=== PATIENT | female | born 1970 | race Hispanic/Latino ===

== ENCOUNTER 2018-03-19 23:03 | Emergency (ER) | payer OTHER ==
[~2018-03-19] VITALS: Ht 165.1 cm; Wt 77.1 kg
[2018-03-19] MEDS ORDERED: ONDANSETRON HCL INJ 2 MG/ML VIAL IV STA (23:21)
[2018-03-19] MEDS ORDERED: ACETAMINOPHEN 325 MG TAB PO ONE (23:30)
[2018-03-19] MEDS ORDERED: SODIUM CHLORIDE 0.9% 1000ML 1,000 ML IV ONE (23:30)
[2018-03-20] MEDS ORDERED: CEFTRIAXONE SOD 1 GM VIAL IV ONE (00:15)
--- NOTE | 2018-03-20 00:45 | NUR ---
Pt ambulates to RR, steady gait, no distress is noted.
--- NOTE | 2018-03-20 01:20 | Diagnostic Imaging Report ---
EXAM: CT ABDOMEN AND PELVIS without IV CONTRAST INDICATION: Left-sided abdominal pain COMPARISON: None TECHNIQUE: The abdomen and pelvis were scanned using a multidetector helical scanner. Coronal and sagittal reformations were obtained. Dose modulation, iterative reconstruction, and/or weight based adjustment of the mA/kV was utilized to reduce the radiation dose to as low as reasonably achievable. Renal stone protocol performed. IV Contrast: None Oral Contrast: None CTDIvol has been reviewed. It is below the limits set by the Radiation Protocol Committee (RPC). FINDINGS: LOWER THORAX: No consolidations LIVER: Hepatomegaly and hepatic stage cirrhosis. BILIARY: Normal gallbladder. No ductal dilation. SPLEEN: No masses PANCREAS: No masses ADRENALS: No nodules RIGHT KIDNEY: There is a 5 x 4 x 3 mm stone in the distal right ureter, approximately 2 cm proximal to the ureterovesicular junction, resulting in severe hydroureteronephrosis and perinephric fat stranding. LEFT KIDNEY: There are 2 punctate nonobstructing stones in the inferior pole. GI TRACT: No wall thickening or obstruction. VESSELS: Normal PERITONEUM/RETROPERITONEUM: No free air or fluid LYMPH NODES: No lymphadenopathy REPRODUCTIVE ORGANS: Normal BLADDER: Normal SOFT TISSUES: Normal BONES: No suspicious bone lesions. IMPRESSION: There is a 5 x 4 x 3 mm stone in the distal right ureter, approximately 2 cm proximal to the ureterovesicular junction, resulting in severe hydroureteronephrosis and perinephric fat stranding. Signed by: Dr. Abbi Santos M.D. on 03/20/2018 1:17 AM
--- NOTE | 2018-03-20 01:30 | NUR ---
Pt ambulating to RR, steady gait, no distress is noted.
[2018-03-20] MEDS ORDERED: KETOROLAC TROMETHAMINE 30 MG/ML VIAL IV STA (01:45)
--- NOTE | 2018-03-20 02:02 | NUR ---
Pt advised of need to transfer to [facility]. Pt states desire to sign out AMA, because they do not want a "$1000 ambulance bill". The pt is in no distress, pain meds and antibiotics given. ERP at bedside to speak with pt about risk of leaving AMA.
[2018-03-20] MEDS ORDERED: MORPHINE SULFATE 2 MG/ML SYR IV STA (03:18)
[2018-03-20] MEDS ORDERED: ONDANSETRON HCL INJ 2 MG/ML VIAL IV STA (03:18)
[2018-03-20] MEDS ORDERED: ACETAMINOPHEN 325 MG TAB PO ONE (03:30)
[2018-03-20 03:49] VITALS: BP 139/61
== END 2018-03-20 03:51 | disposition other institution (70) ==
LOC: FSED 23:03
DX: R10.30 Lower abdominal pain, unspecified (principal); M54.5 Low back pain; R11.0 Nausea; N20.1 Calculus of ureter; N30.91 Cystitis, unspecified with hematuria; N10 Acute pyelonephritis
CPT/HCPCS: 74176; 80053; 81003; 85025; 87040; 87086; 87186; 99284; J7030

== ENCOUNTER 2019-07-12 10:40 | Emergency (ER) | payer OTHER ==
[~2019-07-12] VITALS: Ht 167.6 cm; Wt 72.6 kg
--- OUTSIDE RECORDS SUMMARY | 2019-07-12 10:44 | XMS REPORT ---
[facility] Address Unknown Phone Unavailable Care Team Providers Care Casino Change Attendant Name Role Phone NONSTAFF PP Unavailable Phoenix BEARDEN Unavailable Unavailable JUWAN PRESTON Unavailable Unavailable Leana LARA Unavailable Unavailable Payers Payer Name Policy Type Policy Number Effective Date Expiration Date [facility] [id number] 2016 00:00:00 Problems This patient has no known problems. Allergies, Adverse Reactions, Alerts This patient has no known allergies or adverse reactions. Medications This patient has no known medications. Encounters Start Date/Time End Date/Time Encounter Type Admission Type Attending Clinicians Care Facility Care Department Encounter ID 2018-03-19 23:03:00 2018-03-20 03:51:00 Departed Emergency Room 1 MI LARA [facility] [id number] Results Test Description Test Time Test Comments Text Results Atomic Results Result Comments BLOOD CULTURE 2019-05-05 11:15:00 CULTURE (BEAKER) (test tbaj=3806) From Aerobic Bottle Only Micrococcus luteus GRAM STAIN RESULT (BEAKER) (test fgug=6820) From aerobic bottle only: gram positive cocci in clusters BLOOD [id number] 13:28:00* Test Item Value Reference Range Comments CULTURE (BEAKER) (test ozfp=8862) From Anaerobic Bottle Only Coagulase negative Staphylococcus GRAM STAIN RESULT (BEAKER) (test femj=4331) From anaerobic bottle only: gram positive cocci in clusters POCT-GLUCOSE [id number] 12:17:00* Test Item Value Reference Range Comments POC-GLUCOSE METER (BEAKER) (test mgmf=4165) 196 mg/dL 70-110 : TESTED AT [facility] [address] [facility], [address]: Head Gauge Unit Operator/Drying Machine Back Tender [id number] for STARLA LYNN URINE [id number] 08:46:00* Test Item Value Reference Range Comments CULTURE (BEAKER) (test jsap=2909) ESCHERICHIA COLI >100,000 col/mL Escherichia coli Amikacin (test code=1) Ampicillin + Sulbactam (test code=6) Aztreonam (test code=32) Cefepime (test code=51) Cefoxitin (test code=68) Ceftazidime (test code=27) Ceftriaxone (test code=52) Ertapenem (test code=38) Gentamicin (test code=18) Levofloxacin (test code=22) Meropenem (test code=34) Nitrofurantoin (test code=23) Tetracycline (test code=2) Tobramycin (test code=25) Trimethoprim + Sulfamethoxazole (test code=47) POCT-GLUCOSE [id number] 08:39:00* Test Item Value Reference Range Comments POC-GLUCOSE METER (BEAKER) (test ykxa=3225) 139 mg/dL 70-110 : TESTED AT [facility] [address] [facility], [address]: Head Gauge Unit Operator/Drying Machine Back Tender MQ=[id number] for STARLA LYNN BASIC METABOLIC [id number] 07:25:00* Test Item Value Reference Range Comments SODIUM (BEAKER) (test qavf=035) 138 meq/L 136-145 POTASSIUM (BEAKER) (test wzre=111) 3.5 meq/L 3.5-5.1 CHLORIDE (BEAKER) (test femv=166) 110 meq/L 98-107 CO2 (BEAKER) (test gzie=374) 23 meq/L 22-29 BLOOD UREA NITROGEN (BEAKER) (test fckw=003) 9 mg/dL 7-21 CREATININE (BEAKER) (test syvc=831) 0.71 mg/dL 0.57-1.25 GLUCOSE RANDOM (BEAKER) (test hkdd=816) 147 mg/dL 70-105 CALCIUM (BEAKER) (test mged=955) 8.2 mg/dL 8.4-10.2 EGFR (BEAKER) (test tcec=6686) 87 mL/min/1.73 sq m ESTIMATED GFR IS NOT ACCURATE CREATININE CLEARANCE IN PREDICTING GLOMERULAR FILTRATION RATE. ESTIMATED GFR IS NOT APPLICABLE FOR DIALYSIS PATIENTS. Head Gauge Unit Operator ID - CONY LCBC W/PLT COUNT & AUTO [id number] 06:51:00* Test Item Value Reference Range Comments WHITE BLOOD CELL COUNT (BEAKER) (test xlwy=094) 8.7 K/ L 3.5-10.5 RED BLOOD CELL COUNT (BEAKER) (test amne=013) 4.03 M/ L 3.93-5.22 HEMOGLOBIN (BEAKER) (test xrnh=146) 11.5 GM/DL 11.2-15.7 HEMATOCRIT (BEAKER) (test xlzh=652) 36.6 % 34.1-44.9 MEAN CORPUSCULAR VOLUME (BEAKER) (test ftdq=890) 90.8 fL 79.4-94.8 MEAN CORPUSCULAR HEMOGLOBIN (BEAKER) (test ihvn=283) 28.5 pg 25.6-32.2 MEAN CORPUSCULAR HEMOGLOBIN CONC (BEAKER) (test mizd=883) 31.4 GM/DL 32.2-35.5 RED CELL DISTRIBUTION WIDTH (BEAKER) (test gcuw=543) 12.9 % 11.7-14.4 PLATELET COUNT (BEAKER) (test afqq=482) 179 K/CU MM 150-450 MEAN PLATELET VOLUME (BEAKER) (test hvdm=749) 10.7 fL 9.4-12.3 NUCLEATED RED BLOOD CELLS (BEAKER) (test jzts=233) 0 /100 WBC 0-0 NEUTROPHILS RELATIVE PERCENT (BEAKER) (test yebv=773) 69 % LYMPHOCYTES RELATIVE PERCENT (BEAKER) (test riwv=737) 17 % MONOCYTES RELATIVE PERCENT (BEAKER) (test udwt=238) 13 % EOSINOPHILS RELATIVE PERCENT (BEAKER) (test sekn=608) 0 % BASOPHILS RELATIVE PERCENT (BEAKER) (test tcxl=992) 1 % NEUTROPHILS ABSOLUTE COUNT (BEAKER) (test zjyv=043) 5.99 K/ L 1.56-6.13 LYMPHOCYTES ABSOLUTE COUNT (BEAKER) (test lprq=076) 1.48 K/ L 1.18-3.74 MONOCYTES ABSOLUTE COUNT (BEAKER) (test brgz=631) 1.17 K/ L 0.24-0.36 EOSINOPHILS ABSOLUTE COUNT (BEAKER) (test lnrj=657) 0.00 K/ L 0.04-0.36 BASOPHILS ABSOLUTE COUNT (BEAKER) (test yjnw=947) 0.04 K/ L 0.01-0.08 IMMATURE GRANULOCYTES-RELATIVE PERCENT (BEAKER) (test qimw=6758) 1 % 0-1 BLOOD CULTURE IDENTIFICATION [id number] 01:13:00* Test Item Value Reference Range Comments LISTERIA MONOCYTOGENES (test etud=5800586) Not detected Not detected STAPHYLOCOCCUS (test ufea=9140079) Detected Not detected Coagulase negative Staph species (CoNS)- methicillin susceptibleFirst-line therapy: Cefazolin or Oxacillin (Oxacillin preferred if COMPLAINT EVALUATION SUPERVISOR involvement) MecA NOT DETECTEDPossible contamination. The likelihood of pathogenicity is increased if the organism is observed in multiple blood cultures obtained from separate venipunctures.Reference Range: Not Detected STAPHYLOCOCCUS AUREUS (test jugl=6323189) Not detected Not detected STREPTOCOCCUS (test mfty=2093024) Not detected Not detected STREPTOCOCCUS AGALACTIAE (GROUP B) (test elpi=8505149) Not detected Not detected STREPTOCOCCUS PNEUMONIAE (test ddkg=5295932) Not detected Not detected STREPTOCOCCUS PYOGENES (GROUP A) (test atca=8735860) Not detected Not detected ACINETOBACTER BAUMANNII (test gero=9136154) Not detected Not detected HAEMOPHILUS INFLUENZAE (test jkpm=1237109) Not detected Not detected NEISSERIA MENINGITIDIS (test trbe=4808104) Not detected Not detected ENTEROBACTERIACEAE (test ormh=0693781) Not detected Not detected ENTEROBACTER CLOACOE COMPLEX (test kcjs=5200101) Not detected Not detected KLEBSIELLA OXYTOCA (test iaym=8107402) Not detected Not detected KLEBSIELLA PNEUMONIAE (test ytly=8414) Not detected Not detected PROTEUS (test cmov=0952565) Not detected Not detected SERRATIA MARCESCENS (test cxdg=8243524) Not detected Not detected CELINE ALBICANS (test vlum=0743186) Not detected Not detected CELINE GLABRATA (test ghml=8851219) Not detected Not detected CELINE KRUSEI (test ddoa=9787303) Not detected Not detected CELINE PARAPSILOSIS (test aojy=6222157) Not detected Not detected CELINE TROPICALIS (test xiqr=4607862) Not detected Not detected ESCHERICHIA COLI (test oycf=9012857) Not detected Not detected METHICILLIN-RESISTANCE GENE (test efbc=8728096) Not detected Not detected VANCOMYCIN-RESISTANCE GENE (test imne=6930663) CARBAPENEM-RESISTANCE GENE (test bmbt=4812892) ENTEROCOCCUS-BEAKER (test zktm=1160063) Not detected Not detected PSEUDOMONAS AERUGINOSA-BEAKER (test szoe=7760936) Not detected Not detected Other bacteria and resistance markers not targeted by this PCR panel cannot be e xcluded; therefore clinical correlation and follow up of serology, culture resul ts, and other molecular studies is required. The results are not intended to be used as the sole means for clinical diagnosis or patient management decisions. T his sample was tested at the [facility] using the You.i Blood Culture ID Panel. It is FDA cleared and has been verified and approved by the [facility] for clinical use. Thi s laboratory is CLIA-certified and [employer] ([employer])-accred ited to perform high complexity testing.POCT-GLUCOSE [id number] 21:04:00* Test Item Value Reference Range Comments POC-GLUCOSE METER (BEAKER) (test rsjr=8924) 174 mg/dL 70-110 : TESTED AT [address], [address]: Head Gauge Unit Operator/Drying Machine Back Tender JP=[id number] for JEY STUART POCT-GLUCOSE [id number] 17:30:00* Test Item Value Reference Range Comments POC-GLUCOSE METER (BEAKER) (test hext=1722) 182 mg/dL 70-110 : TESTED AT [address], [address]: Head Gauge Unit Operator/Drying Machine Back Tender XG=[id number] for CHELSIE BANGURA POCT-GLUCOSE [id number] 11:55:00* Test Item Value Reference Range Comments POC-GLUCOSE METER (BEAKER) (test fisl=9387) 145 mg/dL 70-110 : TESTED AT [address], [address]: Head Gauge Unit Operator/Drying Machine Back Tender KF=[id number] for CHELSIE BANGURA POCT-GLUCOSE [id number] 07:52:00* Test Item Value Reference Range Comments POC-GLUCOSE METER (BEAKER) (test vaqz=7655) 144 mg/dL 70-110 : TESTED AT [address], [address]: Head Gauge Unit Operator/Drying Machine Back Tender TL=[id number] for CHELSIE BANGURA CBC W/PLT COUNT & AUTO [id number] 03:36:00* Test Item Value Reference Range Comments WHITE BLOOD CELL COUNT (BEAKER) (test kizk=076) 13.7 K/ L 3.5-10.5 RED BLOOD CELL COUNT (BEAKER) (test ypcz=941) 4.54 M/ L 3.93-5.22 HEMOGLOBIN (BEAKER) (test fikg=046) 13.1 GM/DL 11.2-15.7 HEMATOCRIT (BEAKER) (test mzxo=646) 40.9 % 34.1-44.9 MEAN CORPUSCULAR VOLUME (BEAKER) (test zizo=401) 90.1 fL 79.4-94.8 MEAN CORPUSCULAR HEMOGLOBIN (BEAKER) (test yqaz=248) 28.9 pg 25.6-32.2 MEAN CORPUSCULAR HEMOGLOBIN CONC (BEAKER) (test nwef=248) 32.0 GM/DL 32.2-35.5 RED CELL DISTRIBUTION WIDTH (BEAKER) (test ymqx=184) 13.0 % 11.7-14.4 PLATELET COUNT (BEAKER) (test vqxd=960) 195 K/CU MM 150-450 MEAN PLATELET VOLUME (BEAKER) (test szaf=745) 10.4 fL 9.4-12.3 NUCLEATED RED BLOOD CELLS (BEAKER) (test tqpm=245) 0 /100 WBC 0-0 NEUTROPHILS RELATIVE PERCENT (BEAKER) (test zbvf=756) 80 % LYMPHOCYTES RELATIVE PERCENT (BEAKER) (test obsg=263) 11 % MONOCYTES RELATIVE PERCENT (BEAKER) (test vlne=337) 8 % EOSINOPHILS RELATIVE PERCENT (BEAKER) (test clpp=007) 0 % BASOPHILS RELATIVE PERCENT (BEAKER) (test bduw=278) 0 % NEUTROPHILS ABSOLUTE COUNT (BEAKER) (test bpmm=133) 10.92 K/ L 1.56-6.13 LYMPHOCYTES ABSOLUTE COUNT (BEAKER) (test rlry=142) 1.52 K/ L 1.18-3.74 MONOCYTES ABSOLUTE COUNT (BEAKER) (test jecb=319) 1.08 K/ L 0.24-0.36 EOSINOPHILS ABSOLUTE COUNT (BEAKER) (test czng=498) 0.00 K/ L 0.04-0.36 BASOPHILS ABSOLUTE COUNT (BEAKER) (test vuhz=238) 0.04 K/ L 0.01-0.08 IMMATURE GRANULOCYTES-RELATIVE PERCENT (BEAKER) (test nqhd=9871) 1 % 0-1 BASIC METABOLIC [id number] 03:31:00* Test Item Value Reference Range Comments SODIUM (BEAKER) (test syqc=047) 137 meq/L 136-145 POTASSIUM (BEAKER) (test qwek=608) 4.1 meq/L 3.5-5.1 Specimen slightly hemolyzed CHLORIDE (BEAKER) (test gynb=510) 109 meq/L 98-107 CO2 (BEAKER) (test pcme=544) 22 meq/L 22-29 BLOOD UREA NITROGEN (BEAKER) (test suni=168) 11 mg/dL 7-21 CREATININE (BEAKER) (test kjav=391) 0.81 mg/dL 0.57-1.25 Specimen slightly hemolyzed GLUCOSE RANDOM (BEAKER) (test masx=518) 154 mg/dL 70-105 CALCIUM (BEAKER) (test yvbb=373) 8.5 mg/dL 8.4-10.2 EGFR (BEAKER) (test xutn=6402) 75 mL/min/1.73 sq m ESTIMATED GFR IS NOT ACCURATE CREATININE CLEARANCE IN PREDICTING GLOMERULAR FILTRATION RATE. ESTIMATED GFR IS NOT APPLICABLE FOR DIALYSIS PATIENTS. Head Gauge Unit Operator ID - ROLANDO MPOCT-GLUCOSE [id number] 22:14:00* Test Item Value Reference Range Comments POC-GLUCOSE METER (BEAKER) (test tgpk=8019) 168 mg/dL 70-110 : TESTED AT [facility] [address] [facility], [address]: Head Gauge Unit Operator/Drying Machine Back Tender UI=[id number] for MUNGUIA, SARA POCT-GLUCOSE [id number] 18:25:00* Test Item Value Reference Range Comments POC-GLUCOSE METER (BEAKER) (test uumc=7355) 127 mg/dL 70-110 : TESTED AT [facility] [address] [facility], [address]: Head Gauge Unit Operator/Drying Machine Back Tender TF=[id number] for LUTZ, SHIVA LACTIC ACID, [id number] 11:34:00* Test Item Value Reference Range Comments LACTATE BLOOD VENOUS (2) (BEAKER) (test jeiz=7648) 1.3 mmol/L 0.5-2.2 CT, [id number] 10:20:00Please specify:->TUBAL LIGATIONFINAL REPORT CT scan of the abdomen and pelvis. MEDICAL HISTORY: Left flank pain. COMPARISON STUDY: None available. TECHNIQUE: Contiguous helical slices were acquired through the abdomen and pelvis without the administration of contrast. This exam was performed according to our department dose op timization program which includes automated exposure control, adjustment of the mA and/or kV according to the patient's size and/or use of iterative reconstruct ion technique. FINDINGS: The lung bases are clear. The abdomen and pelvis are li mited by lack of contrast. The liver is fatty in attenuation with no focal moe s. The spleen, pancreas and adrenal glands are unremarkable. The gallbladder and biliary tree are within normal limits. There is a 2 mm nonocclusive calculus in the interpolar portion of the right kidney. An 8 mm low-attenuation lesion is a lso seen in the interpolar portion of the left kidney. Approximately five puncta te nonocclusive left renal calculi are seen measuring up to 2 mm. No significant hydronephrosis is noted. There is no ureteric calculus seen. Left-sided perinep hric and periureteric stranding is noted. No free fluid or free air is seen. The re is no suspicious adenopathy. There are no dilated loops of bowel seen suggest obstruction. A normal appendix is seen. The aorta is normal in caliber. Bone wi ndows demonstrate degenerative changes. IMPRESSION:1. Fatty liver.2. Study limit ed by lack of contrast.3. Left-sided perinephric stranding and periureteric stra nding. No definite calculus is seen at the present time. Potential etiologies in clude a recently passed calculus or infection/inflammation.4. Bilateral tiny non occlusive renal calculi and low-attenuation lesion in the left kidney. Signed: López Lucas MDReport Verified Date/Time: 04/29/2019 10:20:49 Reading Locatio n: [facility] Diagnostic Imaging Reading Room - [facility] F1 1129 Electronically sign ed by: LÓPEZ KHAN M.D. on 04/29/2019 10:20 AM BASIC METABOLIC PANEL 2019-04-29 09:57:00* Test Item Value Reference Range Comments SODIUM (BEAKER) (test talw=555) 135 meq/L 135-148 POTASSIUM (BEAKER) (test kppp=937) 4.3 meq/L 3.6-5.5 CHLORIDE (BEAKER) (test anna=456) 101 meq/L 98-106 CO2 (BEAKER) (test pinx=056) 24 meq/L 24-32 BLOOD UREA NITROGEN (BEAKER) (test sukb=124) 17 mg/dL 10-26 CREATININE (BEAKER) (test wsrb=141) 0.94 mg/dL 0.50-1.20 GLUCOSE RANDOM (BEAKER) (test ppoy=451) 200 mg/dL 70-110 CALCIUM (BEAKER) (test yuuf=494) 8.8 mg/dL 8.5-10.5 EGFR (BEAKER) (test areu=0771) 63 mL/min/1.73 sq m ESTIMATED GFR IS NOT ACCURATE CREATININE CLEARANCE IN PREDICTING GLOMERULAR FILTRATION RATE. ESTIMATED GFR IS NOT APPLICABLE FOR DIALYSIS PATIENTS. CBC W/PLT COUNT & AUTO [id number] 09:49:00* Test Item Value Reference Range Comments WHITE BLOOD CELL COUNT (BEAKER) (test hhwx=785) 20.2 K/ L 4.0-10.0 RED BLOOD CELL COUNT (BEAKER) (test mhxf=620) 5.32 M/ L 4.00-5.00 HEMOGLOBIN (BEAKER) (test zajo=029) 15.7 GM/DL 12.0-15.0 HEMATOCRIT (BEAKER) (test xdox=182) 47.3 % 36.0-45.0 MEAN CORPUSCULAR VOLUME (BEAKER) (test mjxw=072) 88.9 fL 82.0-99.0 MEAN CORPUSCULAR HEMOGLOBIN (BEAKER) (test rmbx=592) 29.5 pg 27.0-33.0 MEAN CORPUSCULAR HEMOGLOBIN CONC (BEAKER) (test ujwr=544) 33.2 GM/DL 32.0-36.0 RED CELL DISTRIBUTION WIDTH (BEAKER) (test xueu=544) 12.1 % 10.3-14.2 PLATELET COUNT (BEAKER) (test zrfb=302) 244 K/CU MM 150-430 MEAN PLATELET VOLUME (BEAKER) (test voli=649) 8.5 fL 6.5-10.5 NEUTROPHILS RELATIVE PERCENT (BEAKER) (test fwje=435) 84 % LYMPHOCYTES RELATIVE PERCENT (BEAKER) (test wnaj=923) 7 % MONOCYTES RELATIVE PERCENT (BEAKER) (test vrnk=247) 7 % EOSINOPHILS RELATIVE PERCENT (BEAKER) (test hqnv=065) 1 % BASOPHILS RELATIVE PERCENT (BEAKER) (test tszt=791) 1 % NEUTROPHILS ABSOLUTE COUNT (BEAKER) (test ygiq=113) 17.01 K/ L 1.80-8.00 LYMPHOCYTES ABSOLUTE COUNT (BEAKER) (test llax=883) 1.33 K/ L 1.48-4.50 MONOCYTES ABSOLUTE COUNT (BEAKER) (test iguy=184) 1.40 K/ L 0.00-1.30 EOSINOPHILS ABSOLUTE COUNT (BEAKER) (test difu=611) 0.22 K/ L 0.00-0.50 BASOPHILS ABSOLUTE COUNT (BEAKER) (test rhtl=048) 0.26 K/ L 0.00-0.20 URINALYSIS W/ [id number] 09:46:00* Test Item Value Reference Range Comments COLOR (BEAKER) (test ltnx=052) Yellow CLARITY (BEAKER) (test usud=689) Turbid SPECIFIC GRAVITY UA (BEAKER) (test ptmv=290) 1.025 1.001-1.035 PH UA (BEAKER) (test ypqb=732) 6.0 5.0-8.0 PROTEIN UA (BEAKER) (test agms=282) >=300 mg/dL Negative GLUCOSE UA (BEAKER) (test slbs=931) Negative Negative KETONES UA (BEAKER) (test rrga=624) 15 mg/dL Negative BILIRUBIN UA (BEAKER) (test usme=231) Negative Negative BLOOD UA (BEAKER) (test hocl=442) Moderate Negative NITRITE UA (BEAKER) (test ysmu=644) Positive Negative LEUKOCYTE ESTERASE UA (BEAKER) (test ewoq=166) Large Negative UROBILINOGEN UA (BEAKER) (test elxs=169) 0.2 mg/dL 0.2-1.0 BACTERIA (BEAKER) (test wlhb=764) Moderate RBC UA-MANUAL (BEAKER) (test qxvt=7340) <5 /HPF WBC UA-MANUAL (BEAKER) (test bnum=6677) >100 /HPF SQUAMOUS EPITHELIAL MANUAL (BEAKER) (test lvds=2721) 10-20 /HPF Clue cells seen, moderate. SOURCE(BEAKER) (test zsjz=1712) BLOOD [id number] 19:01:00* Test Item Value Reference Range Comments CULTURE (BEAKER) (test vrbd=7575) No growth in 5 days BLOOD [id number] 19:01:00* Test Item Value Reference Range Comments CULTURE (BEAKER) (test bvcs=9357) No growth in 5 days POCT-GLUCOSE [id number] 08:12:00* Test Item Value Reference Range Comments POC-GLUCOSE METER (BEAKER) (test hodg=9471) 183 mg/dL 70-110 TESTED AT [facility] [address] [facility] [address] BASIC METABOLIC [id number] 05:27:00* Test Item Value Reference Range Comments SODIUM (BEAKER) (test vbro=211) 139 meq/L 136-145 POTASSIUM (BEAKER) (test miqb=747) 3.7 meq/L 3.5-5.1 CHLORIDE (BEAKER) (test bzdm=905) 106 meq/L 98-107 CO2 (BEAKER) (test yerv=519) 26 meq/L 22-29 BLOOD UREA NITROGEN (BEAKER) (test kqiw=792) 8 mg/dL 7-21 CREATININE (BEAKER) (test msvb=094) 0.67 mg/dL 0.57-1.25 GLUCOSE RANDOM (BEAKER) (test lcas=264) 155 mg/dL 70-105 CALCIUM (BEAKER) (test qjsd=148) 8.7 mg/dL 8.4-10.2 EGFR (BEAKER) (test frah=1279) 94 mL/min/1.73 sq m ESTIMATED GFR IS NOT ACCURATE CREATININE CLEARANCE IN PREDICTING GLOMERULAR FILTRATION RATE. ESTIMATED GFR IS NOT APPLICABLE FOR DIALYSIS PATIENTS. CBC W/PLT COUNT & AUTO [id number] 05:08:00* Test Item Value Reference Range Comments WHITE BLOOD CELL COUNT (BEAKER) (test eufj=389) 7.9 K/ L 3.5-10.5 RED BLOOD CELL COUNT (BEAKER) (test fdhj=654) 4.84 M/ L 3.93-5.22 HEMOGLOBIN (BEAKER) (test unow=808) 13.7 GM/DL 11.2-15.7 HEMATOCRIT (BEAKER) (test lhvc=959) 42.5 % 34.1-44.9 MEAN CORPUSCULAR VOLUME (BEAKER) (test azaj=389) 87.8 fL 79.4-94.8 MEAN CORPUSCULAR HEMOGLOBIN (BEAKER) (test heqp=611) 28.3 pg 25.6-32.2 MEAN CORPUSCULAR HEMOGLOBIN CONC (BEAKER) (test ukio=416) 32.2 GM/DL 32.2-35.5 RED CELL DISTRIBUTION WIDTH (BEAKER) (test bcns=880) 13.0 % 11.7-14.4 PLATELET COUNT (BEAKER) (test euyx=806) 231 K/CU MM 150-450 MEAN PLATELET VOLUME (BEAKER) (test mmgb=685) 10.1 fL 9.4-12.3 NUCLEATED RED BLOOD CELLS (BEAKER) (test pjbg=396) 0 /100 WBC 0-0 NEUTROPHILS RELATIVE PERCENT (BEAKER) (test lqjv=235) 47 % LYMPHOCYTES RELATIVE PERCENT (BEAKER) (test opgk=165) 40 % MONOCYTES RELATIVE PERCENT (BEAKER) (test prch=218) 10 % EOSINOPHILS RELATIVE PERCENT (BEAKER) (test rtsm=404) 0 % BASOPHILS RELATIVE PERCENT (BEAKER) (test scyq=329) 1 % NEUTROPHILS ABSOLUTE COUNT (BEAKER) (test evjg=139) 3.73 K/ L 1.56-6.13 LYMPHOCYTES ABSOLUTE COUNT (BEAKER) (test lkym=869) 3.15 K/ L 1.18-3.74 MONOCYTES ABSOLUTE COUNT (BEAKER) (test rhom=373) 0.77 K/ L 0.24-0.36 EOSINOPHILS ABSOLUTE COUNT (BEAKER) (test iedc=870) 0.01 K/ L 0.04-0.36 BASOPHILS ABSOLUTE COUNT (BEAKER) (test uzde=876) 0.07 K/ L 0.01-0.08 IMMATURE GRANULOCYTES-RELATIVE PERCENT (BEAKER) (test itwr=9878) 2 % 0-1 POCT-GLUCOSE [id number] 22:05:00* Test Item Value Reference Range Comments POC-GLUCOSE METER (BEAKER) (test tzve=5360) 266 mg/dL 70-110 TESTED AT [place] [id number] POCT-GLUCOSE [id number] 17:27:00* Test Item Value Reference Range Comments POC-GLUCOSE METER (BEAKER) (test etod=9427) 195 mg/dL 70-110 TESTED AT [address] [address] POCT-GLUCOSE [id number] 13:13:00* Test Item Value Reference Range Comments POC-GLUCOSE METER (BEAKER) (test tzpi=5648) 188 mg/dL 70-110 TESTED AT [address] [address] POCT-GLUCOSE [id number] 08:16:00* Test Item Value Reference Range Comments POC-GLUCOSE METER (BEAKER) (test tvfa=8821) 211 mg/dL 70-110 TESTED AT [address] [address] BASIC METABOLIC [id number] 06:05:00* Test Item Value Reference Range Comments SODIUM (BEAKER) (test lqib=918) 137 meq/L 136-145 POTASSIUM (BEAKER) (test hnrf=760) 3.8 meq/L 3.5-5.1 CHLORIDE (BEAKER) (test gjvl=463) 106 meq/L 98-107 CO2 (BEAKER) (test fdws=139) 25 meq/L 22-29 BLOOD UREA NITROGEN (BEAKER) (test kxgd=045) 7 mg/dL 7-21 CREATININE (BEAKER) (test cmgl=751) 0.70 mg/dL 0.57-1.25 GLUCOSE RANDOM (BEAKER) (test jbqt=717) 166 mg/dL 70-105 CALCIUM (BEAKER) (test raar=663) 8.1 mg/dL 8.4-10.2 EGFR (BEAKER) (test mmqw=1565) 89 mL/min/1.73 sq m ESTIMATED GFR IS NOT ACCURATE CREATININE CLEARANCE IN PREDICTING GLOMERULAR FILTRATION RATE. ESTIMATED GFR IS NOT APPLICABLE FOR DIALYSIS PATIENTS. LACTIC ACID, VENOUS, WHOLE [id number] 05:47:00* Test Item Value Reference Range Comments LACTATE BLOOD VENOUS (2) (BEAKER) (test bewb=5601) 1.3 mmol/L 0.5-2.2 CBC W/PLT COUNT & AUTO [id number] 05:43:00* Test Item Value Reference Range Comments WHITE BLOOD CELL COUNT (BEAKER) (test lnxz=484) 11.3 K/ L 3.5-10.5 RED BLOOD CELL COUNT (BEAKER) (test ffkf=776) 4.28 M/ L 3.93-5.22 HEMOGLOBIN (BEAKER) (test yyfj=484) 12.3 GM/DL 11.2-15.7 HEMATOCRIT (BEAKER) (test soty=431) 38.5 % 34.1-44.9 MEAN CORPUSCULAR VOLUME (BEAKER) (test fzvu=015) 90.0 fL 79.4-94.8 MEAN CORPUSCULAR HEMOGLOBIN (BEAKER) (test rres=380) 28.7 pg 25.6-32.2 MEAN CORPUSCULAR HEMOGLOBIN CONC (BEAKER) (test zupj=088) 31.9 GM/DL 32.2-35.5 RED CELL DISTRIBUTION WIDTH (BEAKER) (test xhxq=682) 13.2 % 11.7-14.4 PLATELET COUNT (BEAKER) (test blvj=549) 182 K/CU MM 150-450 MEAN PLATELET VOLUME (BEAKER) (test ybtc=035) 10.5 fL 9.4-12.3 NUCLEATED RED BLOOD CELLS (BEAKER) (test spkn=084) 0 /100 WBC 0-0 NEUTROPHILS RELATIVE PERCENT (BEAKER) (test upvf=805) 64 % LYMPHOCYTES RELATIVE PERCENT (BEAKER) (test kmrt=190) 26 % MONOCYTES RELATIVE PERCENT (BEAKER) (test ymnw=694) 8 % EOSINOPHILS RELATIVE PERCENT (BEAKER) (test cjcx=433) 0 % BASOPHILS RELATIVE PERCENT (BEAKER) (test tttn=792) 1 % NEUTROPHILS ABSOLUTE COUNT (BEAKER) (test tylx=937) 7.21 K/ L 1.56-6.13 LYMPHOCYTES ABSOLUTE COUNT (BEAKER) (test rgbr=238) 2.96 K/ L 1.18-3.74 MONOCYTES ABSOLUTE COUNT (BEAKER) (test mvez=950) 0.95 K/ L 0.24-0.36 EOSINOPHILS ABSOLUTE COUNT (BEAKER) (test oegg=212) 0.00 K/ L 0.04-0.36 BASOPHILS ABSOLUTE COUNT (BEAKER) (test pimi=805) 0.06 K/ L 0.01-0.08 IMMATURE GRANULOCYTES-RELATIVE PERCENT (BEAKER) (test tnjg=3016) 1 % 0-1 POCT-GLUCOSE [id number] 21:12:00* Test Item Value Reference Range Comments POC-GLUCOSE METER (BEAKER) (test hxvd=4745) 267 mg/dL 70-110 TESTED AT [facility] [address] [facility] [address] POCT-GLUCOSE [id number] 17:26:00* Test Item Value Reference Range Comments POC-GLUCOSE METER (BEAKER) (test ipku=3544) 207 mg/dL 70-110 TESTED AT [place] [id number] POCT-GLUCOSE [id number] 12:34:00* Test Item Value Reference Range Comments POC-GLUCOSE METER (BEAKER) (test aonx=1015) 198 mg/dL 70-110 TESTED AT [place] [address] BASIC METABOLIC [id number] 07:53:00* Test Item Value Reference Range Comments SODIUM (BEAKER) (test vtdq=771) 139 meq/L 136-145 POTASSIUM (BEAKER) (test hqsx=684) 4.0 meq/L 3.5-5.1 Specimen slightly hemolyzed CHLORIDE (BEAKER) (test rtcq=821) 109 meq/L 98-107 CO2 (BEAKER) (test rspp=753) 22 meq/L 22-29 BLOOD UREA NITROGEN (BEAKER) (test yyud=474) 9 mg/dL 7-21 CREATININE (BEAKER) (test zrgw=118) 0.68 mg/dL 0.57-1.25 Specimen slightly hemolyzed GLUCOSE RANDOM (BEAKER) (test fkqn=339) 165 mg/dL 70-105 CALCIUM (BEAKER) (test uocb=450) 8.4 mg/dL 8.4-10.2 EGFR (BEAKER) (test pwba=0422) 92 mL/min/1.73 sq m ESTIMATED GFR IS NOT ACCURATE CREATININE CLEARANCE IN PREDICTING GLOMERULAR FILTRATION RATE. ESTIMATED GFR IS NOT APPLICABLE FOR DIALYSIS PATIENTS. LACTIC ACID, VENOUS, WHOLE [id number] 07:48:00* Test Item Value Reference Range Comments LACTATE BLOOD VENOUS (2) (BEAKER) (test jbhh=5353) 2.7 mmol/L 0.5-2.2 POCT-GLUCOSE [id number] 07:47:00* Test Item Value Reference Range Comments POC-GLUCOSE METER (BEAKER) (test tcmq=1209) 190 mg/dL 70-110 TESTED AT [place] [id number] CBC W/PLT COUNT & AUTO [id number] 07:42:00* Test Item Value Reference Range Comments WHITE BLOOD CELL COUNT (BEAKER) (test gjmm=917) 14.4 K/ L 3.5-10.5 RED BLOOD CELL COUNT (BEAKER) (test hfee=473) 4.21 M/ L 3.93-5.22 HEMOGLOBIN (BEAKER) (test qdcq=000) 12.1 GM/DL 11.2-15.7 HEMATOCRIT (BEAKER) (test wpau=553) 37.9 % 34.1-44.9 MEAN CORPUSCULAR VOLUME (BEAKER) (test blbs=250) 90.0 fL 79.4-94.8 MEAN CORPUSCULAR HEMOGLOBIN (BEAKER) (test zjxm=331) 28.7 pg 25.6-32.2 MEAN CORPUSCULAR HEMOGLOBIN CONC (BEAKER) (test wuhb=002) 31.9 GM/DL 32.2-35.5 RED CELL DISTRIBUTION WIDTH (BEAKER) (test kssd=686) 13.4 % 11.7-14.4 PLATELET COUNT (BEAKER) (test lmqk=972) 185 K/CU MM 150-450 MEAN PLATELET VOLUME (BEAKER) (test ebeb=543) 11.2 fL 9.4-12.3 NUCLEATED RED BLOOD CELLS (BEAKER) (test eism=438) 0 /100 WBC 0-0 NEUTROPHILS RELATIVE PERCENT (BEAKER) (test chha=065) 80 % LYMPHOCYTES RELATIVE PERCENT (BEAKER) (test irfd=142) 11 % MONOCYTES RELATIVE PERCENT (BEAKER) (test ryqx=136) 8 % EOSINOPHILS RELATIVE PERCENT (BEAKER) (test munr=131) 0 % BASOPHILS RELATIVE PERCENT (BEAKER) (test tuax=084) 0 % NEUTROPHILS ABSOLUTE COUNT (BEAKER) (test pdks=208) 11.45 K/ L 1.56-6.13 LYMPHOCYTES ABSOLUTE COUNT (BEAKER) (test qiis=837) 1.64 K/ L 1.18-3.74 MONOCYTES ABSOLUTE COUNT (BEAKER) (test weuy=067) 1.16 K/ L 0.24-0.36 EOSINOPHILS ABSOLUTE COUNT (BEAKER) (test esee=503) 0.00 K/ L 0.04-0.36 BASOPHILS ABSOLUTE COUNT (BEAKER) (test mbfx=327) 0.03 K/ L 0.01-0.08 IMMATURE GRANULOCYTES-RELATIVE PERCENT (BEAKER) (test dtkw=0186) 1 % 0-1 POCT-GLUCOSE [id number] 21:15:00* Test Item Value Reference Range Comments POC-GLUCOSE METER (BEAKER) (test wdtn=3933) 316 mg/dL 70-110 Notified ARIAN RAZA/TESTED AT [address] [address] [place], STERILE PROCESS COORDINATOR IN OR/30 MINUTE [id number] 18:44:00Reason for exam:-> HYDROUTERONEPHROSISFINAL REPORT Fluoroscopy 48 views intraoperative 03/20/2018 6:43 PM CLINICAL HISTORY: Instrument localization COMPARISON: None available IMPRESSION: Please correlate imaging report findings with the procedure note prepared by Dr. Cifuentes, as an intra-procedure imaging consultation was not requested. Reported fluoroscopy time: 1.02 minutes. Signed: John Lopez Verified Date/Time: 03/20/2018 18:44:57 Reading Location: [facility] Radiology Reading Room -GLUCOSE [id number] 17:19:00* Test Item Value Reference Range Comments POC-GLUCOSE METER (BEAKER) (test azjp=0610) 291 mg/dL 70-110 TESTED AT [address] [address] LACTIC ACID, VENOUS, WHOLE [id number] 15:44:00* Test Item Value Reference Range Comments LACTATE BLOOD VENOUS (2) (BEAKER) (test pclb=4073) 1.7 mmol/L 0.5-2.2 LIPID [id number] 15:15:00* Test Item Value Reference Range Comments TRIGLYCERIDES (BEAKER) (test njyt=847) 248 mg/dL CHOLESTEROL (BEAKER) (test isii=883) 224 mg/dL HDL CHOLESTEROL (BEAKER) (test pfzx=581) 41 mg/dL LDL CHOLESTEROL CALCULATED (BEAKER) (test syus=889) 133 mg/dL Triglyceride Reference Range: Low Risk <150 Borderline 150-199 High Risk 200-499 Very High Risk >=500Cholesterol Reference Range: Low Risk <200 Borderline 200-239 High Risk >240HDL Cholesterol Reference Range: Low Risk >=60 High Risk <40LDL Cholesterol Reference Range: Optimal <100 Near Optimal 100-129 Borderline 130-159 High 160-189 Very High >=190 POCT- GLUCOSE [id number] 14:21:00* Test Item Value Reference Range Comments POC-GLUCOSE METER (BEAKER) (test wdme=7161) 224 mg/dL 70-110 TESTED AT [facility] [address] [facility] [address] [id number] 11:30:00* Test Item Value Reference Range Comments PROCALCITONIN (BEAKER) (test qghc=1584) 0.44 ng/mL <0.05 SEPSIS RISK (ng/mL)Low: 0.05-0.50Intermediate: 0.51-2.00High: > =[id number] 10:55:00* Test Item Value Reference Range Comments MAGNESIUM (BEAKER) (test ubbk=520) 1.6 mg/dL 1.6-2.6 BASIC METABOLIC [id number] 10:55:00* Test Item Value Reference Range Comments SODIUM (BEAKER) (test kuuj=358) 137 meq/L 136-145 POTASSIUM (BEAKER) (test uquj=630) 3.4 meq/L 3.5-5.1 CHLORIDE (BEAKER) (test mnga=626) 104 meq/L 98-107 CO2 (BEAKER) (test dzvp=835) 24 meq/L 22-29 BLOOD UREA NITROGEN (BEAKER) (test aeuj=616) 8 mg/dL 7-21 CREATININE (BEAKER) (test uaru=415) 0.85 mg/dL 0.57-1.25 GLUCOSE RANDOM (BEAKER) (test nntn=107) 234 mg/dL 70-105 CALCIUM (BEAKER) (test qepo=823) 8.7 mg/dL 8.4-10.2 EGFR (BEAKER) (test wgjj=1043) 71 mL/min/1.73 sq m ESTIMATED GFR IS NOT ACCURATE CREATININE CLEARANCE IN PREDICTING GLOMERULAR FILTRATION RATE. ESTIMATED GFR IS NOT APPLICABLE FOR DIALYSIS PATIENTS. HEPATIC FUNCTION [id number] 10:55:00* Test Item Value Reference Range Comments TOTAL PROTEIN (BEAKER) (test jgki=561) 7.2 gm/dL 6.0-8.3 ALBUMIN (BEAKER) (test eubc=4158) 3.7 g/dL 3.5-5.0 BILIRUBIN TOTAL (BEAKER) (test zfdc=323) 1.1 mg/dL 0.2-1.2 BILIRUBIN DIRECT (BEAKER) (test keph=842) 0.4 mg/dL 0.1-0.5 ALKALINE PHOSPHATASE (BEAKER) (test lbte=014) 68 U/L 40-150 AST (SGOT) (BEAKER) (test jndc=173) 16 U/L 5-34 ALT (SGPT) (BEAKER) (test qtar=137) 22 U/L 6-55 LACTIC ACID, VENOUS, WHOLE [id number] 10:50:00* Test Item Value Reference Range Comments LACTATE BLOOD VENOUS (2) (BEAKER) (test bjch=6584) 1.5 mmol/L 0.5-2.2 URINALYSIS W/ REFLEX URINE [id number] 10:49:00* Test Item Value Reference Range Comments COLOR (BEAKER) (test cmvw=064) Yellow CLARITY (BEAKER) (test ksge=639) Hazy SPECIFIC GRAVITY UA (BEAKER) (test oten=251) 1.017 1.001-1.035 PH UA (BEAKER) (test jjkv=568) 6.0 5.0-8.0 PROTEIN UA (BEAKER) (test bzsn=016) 30 mg/dL Negative GLUCOSE UA (BEAKER) (test bbcg=101) 70 mg/dL Negative KETONES UA (BEAKER) (test djip=296) 10 mg/dL Negative BILIRUBIN UA (BEAKER) (test ossn=827) Negative Negative BLOOD UA (BEAKER) (test pkos=481) Small Negative NITRITE UA (BEAKER) (test fptv=797) Negative Negative LEUKOCYTE ESTERASE UA (BEAKER) (test clsj=908) Large Negative UROBILINOGEN UA (BEAKER) (test lqmd=904) 0.2 mg/dL 0.2-1.0 RBC UA (BEAKER) (test ybim=732) 4 /HPF WBC UA (BEAKER) (test atsh=951) > /HPF BACTERIA (BEAKER) (test jqdi=112) Occasional MUCUS (BEAKER) (test mpym=1491) Occasional SQUAMOUS EPITHELIAL (BEAKER) (test teuo=134) 1 /HPF SOURCE(BEAKER) (test pjwg=7721) CBC W/PLT COUNT & AUTO [id number] 10:45:00* Test Item Value Reference Range Comments WHITE BLOOD CELL COUNT (BEAKER) (test jjav=470) 17.2 K/ L 3.5-10.5 RED BLOOD CELL COUNT (BEAKER) (test mony=945) 4.85 M/ L 3.93-5.22 HEMOGLOBIN (BEAKER) (test rjie=146) 14.1 GM/DL 11.2-15.7 HEMATOCRIT (BEAKER) (test wwwk=316) 42.1 % 34.1-44.9 MEAN CORPUSCULAR VOLUME (BEAKER) (test unpo=375) 86.8 fL 79.4-94.8 MEAN CORPUSCULAR HEMOGLOBIN (BEAKER) (test mrmj=322) 29.1 pg 25.6-32.2 MEAN CORPUSCULAR HEMOGLOBIN CONC (BEAKER) (test gakh=734) 33.5 GM/DL 32.2-35.5 RED CELL DISTRIBUTION WIDTH (BEAKER) (test echc=636) 13.1 % 11.7-14.4 PLATELET COUNT (BEAKER) (test bbpa=611) 186 K/CU MM 150-450 MEAN PLATELET VOLUME (BEAKER) (test cpez=453) 10.5 fL 9.4-12.3 NUCLEATED RED BLOOD CELLS (BEAKER) (test vdgy=002) 0 /100 WBC 0-0 NEUTROPHILS RELATIVE PERCENT (BEAKER) (test rqcj=252) 85 % LYMPHOCYTES RELATIVE PERCENT (BEAKER) (test uiso=095) 6 % MONOCYTES RELATIVE PERCENT (BEAKER) (test eilo=478) 8 % EOSINOPHILS RELATIVE PERCENT (BEAKER) (test qzhr=103) 0 % BASOPHILS RELATIVE PERCENT (BEAKER) (test hrsl=297) 0 % NEUTROPHILS ABSOLUTE COUNT (BEAKER) (test pplm=741) 14.59 K/ L 1.56-6.13 LYMPHOCYTES ABSOLUTE COUNT (BEAKER) (test zbqw=052) 1.00 K/ L 1.18-3.74 MONOCYTES ABSOLUTE COUNT (BEAKER) (test uwds=118) 1.37 K/ L 0.24-0.36 EOSINOPHILS ABSOLUTE COUNT (BEAKER) (test uwif=925) 0.00 K/ L 0.04-0.36 BASOPHILS ABSOLUTE COUNT (BEAKER) (test nujf=521) 0.05 K/ L 0.01-0.08 IMMATURE GRANULOCYTES-RELATIVE PERCENT (BEAKER) (test vktw=2355) 1 % 0-1 SCREEN, [id number] 10:43:00* Test Item Value Reference Range Comments TEST URINE (BEAKER) (test oksy=794) Negative POCT-GLUCOSE [id number] 10:40:00* Test Item Value Reference Range Comments POC-GLUCOSE METER (BEAKER) (test djab=4760) 249 mg/dL 70-110 TESTED AT [facility] [address] [place] [address] ABD/PEL WO [id number] 01:12:00 [place] [address] Patient Name: ANICETO TIM MR #: [id number] : 1970 Age/Sex: 48/F Req #: [id number] Adm Physician: Ordered by: MI LARA MD Report #: [id number] Location: [facility] Room/Bed: Procedure: [id number] HOPD/CT ABD/PEL WO CONTRAST-HOPD Exam Date: 03/20/18 Exam Time: 0025 REPORT S TATUS: Signed EXAM: CT ABDOMEN AND PELVIS without IV CONTRAST INDICATION: Left-sided abdominal pain COMPARISON: None TECHNIQUE: The abdomen and pelv is were scanned using a multidetector helical scanner. Coronal and sagittal re formations were obtained. Dose modulation, iterative reconstruction, and/or we ight based adjustment of the mA/kV was utilized to reduce the radiation dose t o as low as reasonably achievable. Renal stone protocol performed. IV Contra st: None Oral Contrast: None CTDIvol has been reviewed. It is below the limi ts set by the Radiation Protocol Committee (RPC). FINDINGS: LOWER THORA X: No consolidations LIVER: Hepatomegaly and hepatic stage cirrhosis. FRANCISCO IARY: Normal gallbladder. No ductal dilation. SPLEEN: No masses PANCREAS : No masses ADRENALS: No nodules RIGHT KIDNEY: There is a 5 x 4 x 3 mm stone in the distal right ureter, approximately 2 cm proximal to the ureterov esicular junction, resulting in severe hydroureteronephrosis and perinephric f at stranding. LEFT KIDNEY: There are 2 punctate nonobstructing stones in t he inferior pole. GI TRACT: No wall thickening or obstruction. VES SELS: Normal PERITONEUM/RETROPERITONEUM: No free air or fluid LYMPH NOD ES: No lymphadenopathy REPRODUCTIVE ORGANS: Normal BLADDER: Normal S OFT TISSUES: Normal BONES: No suspicious bone lesions. IMPRESSION: Ther e is a 5 x 4 x 3 mm stone in the distal right ureter, approximately 2 cm proxi mal to the ureterovesicular junction, resulting in severe hydroureteronephrosi s and perinephric fat stranding. Signed by: Dr. Surinder Santos M.D. on 03/20/2018 1:17 AM Dictated By: SURINDER SANTOS MD 6 Transcribed By: ANTHONY on 03/20/18116 COPY TO: MI LARA MD
[2019-07-12] MEDS ORDERED: SODIUM CHLORIDE 0.9% 1000ML 1,000 ML IV STA (11:15)
[2019-07-12] MEDS ORDERED: KETOROLAC TROMETHAMINE 30 MG/ML VIAL IV STA (11:15)
[2019-07-12] MEDS ORDERED: SODIUM CHLORIDE FLUSH 10 ML SYR INJ PRN (11:15)
[2019-07-12] MEDS ORDERED: SODIUM CHLORIDE 0.9% 1000ML 1,000 ML ONE (11:31)
[2019-07-12] MEDS ORDERED: IOPAMIDOL 370 MG/ML 200 ML INFUS..BTL INJ ONE (12:39)
[2019-07-12] MEDS ORDERED: SODIUM CHLORIDE 0.9% 50ML 50 ML ONE (12:39)
--- NOTE | 2019-07-12 13:45 | Diagnostic Imaging Report ---
CT ABDOMEN WITH CONTRAST, CT PELVIS WITH CONTRAST HISTORY: Left-sided flank pain for 3 days COMPARISON: Noncontrast CT of the abdomen and pelvis from 03/20/2018 TECHNIQUE: CT of the abdomen and pelvis was performed with intravenous contrast. The examination was performed to conform to our departmental dose optimization program which includes automated exposure control, adjustment of the mA and/or kV according to patient size and/or use of iterative reconstruction techniques. FINDINGS: Lung bases clear aside from mild chronic scarring in the inferior lingular segment of the left upper lobe. No pleural or pericardial effusions. Diffuse decrease in hepatic attenuation suggestive of fatty infiltration. No abnormalities are visualized in the gallbladder, spleen, pancreas, or adrenal glands. Subcentimeter hypodense lesion in the lower pole of the left kidney, too small to accurately characterize but likely a cyst. 1 mm nonobstructing calculus in the mid right kidney. 1 mm nonobstructing calculus in the lower pole of the left kidney. No ureteral calculi. No hydronephrosis. No significant hydroureter. Bladder unremarkable. A few calcified phlebolith present in the pelvis. No dilated loops of large or small bowel. No free air is visualized. The appendix is normal in caliber, with no surrounding inflammatory change. No gastric abnormality is identified. No uterine or adnexal abnormality is seen. There is nonspecific heterogeneous enhancement of the uterus. No abdominal aortic aneurysm. No fracture or destructive bone lesions. There are mild degenerative changes in the lower lumbar spine and in the bilateral sacroiliac joints. IMPRESSION: 1. No acute CT abnormalities are identified in the abdomen or pelvis. 2. Tiny nonobstructing calculus in each kidney. No ureteral calculi are visualized. 3. Fatty infiltration of the liver. Signed by: Hiren Farooq MD on 07/12/2019 1:42 PM
[2019-07-12 13:48] VITALS: BP 151/81
[2019-07-12] MEDS ORDERED: KETOROLAC TROME10 MG PO (13:51)
[2019-07-12] MEDS ORDERED: MACROBID 100 M100 MG PO (13:55)
== END 2019-07-12 13:56 | disposition home or self-care (01) ==
LOC: FSED 10:40
DX: R10.31 Right lower quadrant pain (principal); R10.32 Left lower quadrant pain; R11.0 Nausea; N39.0 Urinary tract infection, site not specified
CPT/HCPCS: 74177; 80053; 81003; 81025; 85025; 99284; J1885; J7030; Q9967